=== PATIENT | female | born 1950 | race Hispanic/Latino ===

== ENCOUNTER 2018-03-22 07:33 | Observation (INO) | payer OTHER ==
--- NOTE | 2018-03-18 13:54 | Diagnostic Imaging Report ---
EXAMINATION: CHEST 2 VIEWS INDICATION: \S\PRE-OP \[id number] \S\[id number] COMPARISON: None FINDINGS: PA and lateral views TUBES and LINES: None. LUNGS: Lungs are well inflated. Right lower lung field linear atelectasis/scarring. There is no evidence of pneumonia or pulmonary edema. PLEURA: No pleural effusion or pneumothorax. HEART AND MEDIASTINUM: The cardiomediastinal silhouette is unremarkable. BONES AND SOFT TISSUES: No acute osseous lesion. Soft tissues are unremarkable. UPPER ABDOMEN: No free air under the diaphragm. IMPRESSION: No acute thoracic abnormality. Signed by: Dr. Morgan Campbell MD on 03/18/2018 1:51 PM
[2018-03-22] VITALS (7 sets, daily range): BP systolic 114–139; BP diastolic 64–72
[~2018-03-22] VITALS: Ht 154.9 cm; Wt 89.4 kg
[~2018-03-22 07:33] MED LIST: BUPIVACAINE 0.25%/EPI 30ML SDV INJ ONE; ESTROGENS CONJUGATED VAGINAL CR 45 GM TUBE PV ONE; JANUVIA100 MG PO; JARDIANCE PO; LISINOPRIL10 MG PO; METFORMIN HCL500 MG PO; OMEPRAZOLE PO
[2018-03-22] MEDS ORDERED: CEFAZOLIN SOD 2 GM/D5W 50ML 50 ML IV ONE (07:56)
[2018-03-22 08:39] LABS: BASOPHILS # (AUTO) 0.1 (0.0-0.1); BASOPHILS % 0.4 % (0.0-1.0); EOSINOPHILS # (AUTO) 0.1 (0.0-0.4); EOSINOPHILS % 1.1 % (0.0-6.0); HEMATOCRIT 36.6 % (34.2-44.1); HEMOGLOBIN 11.7 g/dL (12.0-16.0); LYMPHOCYTES # (AUTO) 2.6 (1.0-3.2); LYMPHOCYTES % 22.5 % (18.0-39.1); MEAN CORPUSCULAR VOLUME 78.2 fL (81-99); MONOCYTES # (AUTO) 0.8 (0.2-0.8); MONOCYTES % 7.3 % (4.4-11.3); NEUTROPHILS # (AUTO) 7.8 (2.1-6.9); NEUTROPHILS % 68.1 % (38.7-80.0); PLATELET COUNT 266 x10e3/uL (140-360); RED BLOOD COUNT 4.68 x10e6/uL (3.6-5.1); RED CELL DISTRIBUTION WIDTH 14.3 % (11.7-14.4)
[2018-03-22] MEDS ORDERED: BUPIVACAINE 0.25%/EPI 30ML SDV INJ ONE (08:51)
[2018-03-22 08:57] LABS: ALANINE AMINOTRANSFERASE 16 IU/L (0-55); ALBUMIN 3.6 g/dL (3.5-5.0); ALBUMIN/GLOBULIN RATIO 1.1 (0.8-2.0); ALKALINE PHOSPHATASE 104 IU/L (40-150); ANION GAP 15.2 mmol/L (8-16); BLOOD UREA NITROGEN 10 mg/dL (7-26); BUN/CREATININE RATIO 14 (6-25); CALCIUM 9.8 mg/dL (8.4-10.2); CARBON DIOXIDE 23 mmol/L (22-29); CHLORIDE 109 mmol/L (98-107); CREATININE, SERUM 0.73 mg/dL (0.57-1.11); EST GLOMERULAR FILTRATION RATE > 60 ML/MIN (60-); GLUCOSE 132 mg/dL (74-118); POTASSIUM 4.2 mmol/L (3.5-5.1); SODIUM 143 mmol/L (136-145)
[2018-03-22] MEDS ORDERED: ESTROGENS CONJUGATED VAGINAL CR 45 GM TUBE PV ONE (09:07)
[2018-03-22] MEDS ORDERED: ACETAMINOPHEN 1000 MG/100 ML 100 ML IV ONE (09:43)
[2018-03-22] MEDS ORDERED: KETOROLAC TROMETHAMINE 30 MG/ML VIAL IM PRN (09:45)
[2018-03-22] MEDS ORDERED: ONDANSETRON HCL INJ 2 MG/ML VIAL IV PRN (09:45)
[2018-03-22] MEDS ORDERED: FENTANYL CITRATE/PF 100MCG/2 ML INJ ONE ×2 (11:28→17:43)
[2018-03-22] MEDS ORDERED: MORPHINE SULFATE 2 MG/ML SYR ONE ×4 (11:55→12:38)
[2018-03-22] MEDS: LACTATED RINGER'S 1,000 ML IV SCH ×2 (13:24→20:40)
[2018-03-22] MEDS: MEPERIDINE HCL INJ 25 MG/ML VIAL IV PRN ×2 (13:33→20:41)
--- NOTE | 2018-03-22 13:47 | Operative Report ---
DATE OF PROCEDURE: March 22, 2018 PREOPERATIVE DIAGNOSIS: Pelvic organ prolapse. POSTOPERATIVE DIAGNOSIS: Pelvic organ prolapse. PROCEDURES 1. Total vaginal hysterectomy. 2. Bilateral salpingo-oophorectomy. 3. Anterior and posterior repair. 4. Sacrospinous colpopexy. DIGITAL BUSINESS ANALYST: Kwabena. COMPLICATIONS: None. ESTIMATED BLOOD LOSS: 50 mL. PROCEDURE IN DETAIL: Patient was taken to OR. General anesthesia was placed. She was prepped and draped in normal sterile fashion and placed in dorsal lithotomy position. Bladder was emptied with a rubber catheter. A weighted speculum was placed inside of the vagina. Subvaginal tissue around the cervix was injected with Marcaine with epinephrine 0.25%, about 30 mL. A circumferential vaginal skin incision was made at the bladder line using the scalpel and bladder was dissected off the cervix using curved Lucio scissors and gentle sweeps of a Ray-Blanca wrapped on the index finger. The anterior wall of the vagina was held with hemostats in the midline and the vagina was dissected off the bladder using Metzenbaum scissors using the push-spread technique and the vagina was opened in the midline using the same instruments. The 2 flaps of the vagina were dissected off the underlying bladder using both sharp and blunt dissection. Pelvic floor fascia was pierced with an index finger and ischial spine and sacrospinous ligament was palpated. A Vicryl suture was placed on the sacrospinous ligament about 1.5 cm medial to the ischial spine using the Capio. The same was repeated on the other side. Vaginal hysterectomy was performed after opening the pouch of Adán and advancing the weighted speculum in the pouch of Adán. A curved LigaSure was used to hold the uterosacral ligaments on each side. Vessels were occluded and the pedicles were cut. Same was repeated on the other side. The uterine vessels on each side were held with LigaSure. Vessels occluded and pedicle cut. The same was repeated medially and cephalad using the same instrument. Following this, the fundus was brought outside the introitus. The anterior pouch was opened with Metzenbaum scissors and 2 Zeppelin clamps were applied at the apex of the broad ligaments at the cornu. The uterus was freed and sent to pathology. Pedicles were secured with transfixion suture of Vicryl 0. Following this, the left adnexa was held with a [place] and using the curved Zeppelin clamp, the tubes and ovaries were freed and pedicles secured with transfixion suture of Vicryl 0. The same was repeated on the other side and the tubes and ovaries were sent to pathology. Hemostasis was found to be adequate. Following this, the pubocervical ligament on each side was approximated and brought together using Vicryl 0. Excess vaginal skin was trimmed off using curved Lucio scissors. The vagina was closed with interlocking sutures of Vicryl 0 and the sacrospinous ligament was hitched to the vaginal vault using the Capio. Following this, after closing the vagina and vaginal vault, the sacrospinous ligament was tied and the vaginal vault was lifted. Two Allis clamps were applied at the mucocutaneous junction about 1 cm from the fourchette and the skin in between was cut using curved Lucio scissors. The vagina was dissected off the perineum and the rectum using Metzenbaum scissors and opened in the midline using same instruments. Two flaps of the vagina were dissected off the underlying muscles using both sharp and blunt dissection. The levator ani were approximated using Vicryl 0, two sutures were used and curved Lucio scissors were used to trim off the excess vaginal skin. Vagina was closed with interlocking sutures of Vicryl 0. Subcu suture was used for the perineal skin. Patient tolerated the procedure well. Lap, instrument, and needle counts were correct x2 at the end of the procedure. Vaginal pack was inserted and the [place] catheter was left inside the bladder. Job#: [id number] WANG
[2018-03-22] MEDS ORDERED: PNEUMOCOCCAL VACCINE POLYVALENT 23 MCG/0.5 ML VIAL IM NR (14:00)
[2018-03-22] MEDS ORDERED: DEXTROSE 50% SYRINGE 50 ML IV PRN (17:15)
[2018-03-22] MEDS: INSULIN REGULAR, HUMAN 100 UNIT/1 ML 3ML VIAL SQ SCH ×2 (17:15→21:19)
[2018-03-22] MEDS ORDERED: PROPOFOL IV EMULSION 10 MG/ML 20 ML VIAL ONE (17:17)
[2018-03-22] MEDS ORDERED: LIDOCAINE HCL 2% LOCAL INJ 5 ML SDV VIAL INJ ONE (17:17)
[2018-03-22] MEDS ORDERED: NEOSTIGMINE 5 MG/5ML SYR ONE (17:17)
[2018-03-22] MEDS ORDERED: SEVOFLURANE INHAL SOLN 250 ML PEN BTL ONE (17:17)
[2018-03-22] MEDS ORDERED: GLYCOPYRROLATE INJ 1MG/ 5 ML SYR ONE (17:17)
[2018-03-22] MEDS ORDERED: ONDANSETRON HCL INJ 2 MG/ML VIAL ONE (17:17)
[2018-03-22] MEDS ORDERED: ROCURONIUM BROMIDE 10 MG/ML 5ML VIAL ONE (17:17)
[2018-03-22] MEDS ORDERED: DEXAMETHASONE SOD PHOS INJ 4 MG/ML VIAL ONE (17:17)
[2018-03-22] MEDS ORDERED: MIDAZOLAM HCL 2 MG/2 ML VIAL ONE (17:43)
[2018-03-23] VITALS (7 sets, daily range): BP systolic 121–135; BP diastolic 53–73
[2018-03-23] MEDS: INSULIN REGULAR, HUMAN 100 UNIT/1 ML 3ML VIAL SQ SCH ×3 (01:17→09:15)
[2018-03-23] MEDS: LACTATED RINGER'S 1,000 ML IV SCH ×2 (01:31→04:07)
[2018-03-23] MEDS ORDERED: ATORVASTATIN CA10 MG PO (05:21)
[2018-03-23] MEDS: MEPERIDINE HCL INJ 25 MG/ML VIAL IV PRN ×3 (05:50→20:36)
[2018-03-23] MEDS: METFORMIN HCL 750 MG TAB ER PO SCH ×2 (09:09→16:16)
[2018-03-23] MEDS: PANTOPRAZOLE SOD 40 MG TABEC PO SCH (09:09)
[2018-03-23] MEDS: SITAGLIPTIN 100 MG TAB PO SCH (09:09)
[2018-03-23] MEDS: LISINOPRIL 10 MG TAB PO SCH (09:20)
[2018-03-23] MEDS ORDERED: KETOROLAC TROMETHAMINE 30 MG/ML VIAL IV PRN (11:15)
[2018-03-24] VITALS: BP 139/69
[2018-03-24 04:00] VITALS: BP 127/62
[2018-03-24 07:00] VITALS: BP 127/62
[2018-03-24 07:49] VITALS: BP 130/65
[2018-03-24] MEDS: PANTOPRAZOLE SOD 40 MG TABEC PO SCH (09:08)
[2018-03-24] MEDS: LISINOPRIL 10 MG TAB PO SCH (09:08)
[2018-03-24] MEDS: SITAGLIPTIN 100 MG TAB PO SCH (09:08)
[2018-03-24] MEDS: METFORMIN HCL 750 MG TAB ER PO SCH (09:08)
[2018-03-24] MEDS: MEPERIDINE HCL INJ 25 MG/ML VIAL IV PRN (10:20)
[2018-03-24 11:13] VITALS: BP 125/66
== END 2018-03-24 10:52 | disposition home or self-care (01) ==
LOC: OR 07:33 → PACU V 09:33 → IMCU 12:58
PROVIDERS: ADMIT Obstetrics & Gynecology; ATTEND Obstetrics & Gynecology
DX: N81.89 Other female genital prolapse (principal); J45.909 Unspecified asthma, uncomplicated; I10 Essential (primary) hypertension; E11.9 Type 2 diabetes mellitus without complications; Z01.810 Encounter for preprocedural cardiovascular examination; Z01.811 Encounter for preprocedural respiratory examination; Z23 Encounter for immunization; N72 Inflammatory disease of cervix uteri
CPT/HCPCS: 36415 ×2; 57260; 57282; 58262; 71046; 80053; 82948 ×2; 85025; 86850; 86900; 88305; 90732; 93005; G0378 ×3; J1100; J1885; J2001; J2175 ×3; J2250; J2270; J2405; J3490; J7120 ×2; S0164 ×2; 88307